=== PATIENT | male | born 1980 | race Caucasian/White ===

== ENCOUNTER 2016-09-04 15:56 | Inpatient (IN) | payer MEDICAID ==
[~2016-09-04] VITALS: Ht 170.2 cm; Wt 90.7 kg
[2016-09-04 16:44] LABS: BASOPHIL % 0.7 % (0-2); PLATELET COUNT 199 x10^3mcL (130-400)
[2016-09-04 16:45] LABS: RED CELL DISTRIBUTION WIDTH 14.9 % (11.5-14.5)
[2016-09-04 16:57] LABS: CALCIUM 8.4 mg/dL (8.5-10.1); CHLORIDE SERUM 103 mmol/L (98-107); CREATININE SERUM 1.3 mg/dL (0.7-1.3); GFR1 > 60 mL/min; GLUCOSE SERUM 132 mg/dL (74-106); POTASSIUM SERUM 3.5 mmol/L (3.5-5.1); SODIUM SERUM 140 mmol/L (136-145)
[2016-09-04 17:01] LABS: ALKALINE PHOSPHATASE 78 U/L (46-116); ALT/SGPT 48 U/L (16-63); AST/SGOT 40 U/L (15-37); BILIRUBIN TOTAL 0.7 mg/dL (0.20-1.00); TOTAL PROTEIN, SERUM 7.6 g/dL (6.4-8.2)
[2016-09-04 17:02] LABS: AMYLASE 392 U/L (25-115)
[2016-09-04 17:19] LABS: LIPASE 6921 IU/L (73-393)
[2016-09-04 17:29] LABS: UA SPECIFIC GRAVITY >=1.030 (1.005-1.035); microscopic required? YES; urine erythrocyte NEGATIVE (NEGATIVE)
[2016-09-04 17:45] LABS: AMPHETAMINE QUAL UR POSITIVE (NEG <=1000)
[2016-09-04 18:31] VITALS: BP 144/90
[2016-09-04 18:34] VITALS: Ht 170.2 cm; Wt 90.7 kg
[2016-09-04 19:12] LABS: T3 TOTAL 0.93 ng/mL
[2016-09-04 19:16] LABS: FREE THYROXINE INDEX 2.3 ug/dL (1.4-4.5); T4(THYROXINE) 6.4 ug/dL (4.7-13.3)
[2016-09-04 19:19] LABS: CHOLESTEROL/HDL RATIO 3.9; MAGNESIUM 1.9 mg/dL (1.8-2.4); PHOSPHOROUS 2.2 mg/dL (2.5-4.9)
[2016-09-04 22:03] VITALS: BP 145/56; BP 177/92
[2016-09-05 06:01] LABS: BASOPHIL % 0.2 % (0-2); PLATELET COUNT 197 x10^3mcL (130-400)
[2016-09-05 06:11] LABS: CALCIUM 7.5 mg/dL (8.5-10.1); CARBON DIOXIDE 21.6 mmol/L (21-32); CHLORIDE SERUM 103 mmol/L (98-107); GFR1 > 60 mL/min; GLUCOSE SERUM 137 mg/dL (74-106); MAGNESIUM 1.7 mg/dL (1.8-2.4); PHOSPHOROUS 2.5 mg/dL (2.5-4.9); POTASSIUM SERUM 3.3 mmol/L (3.5-5.1); SODIUM SERUM 137 mmol/L (136-145)
[2016-09-05 06:15] VITALS: BP 162/91
[2016-09-05 07:40] LABS: RED CELL DISTRIBUTION WIDTH 15.2 % (11.5-14.5)
[2016-09-05 09:18] VITALS: BP 130/66
[2016-09-05 12:54] VITALS: BP 133/74
[2016-09-05 17:00] VITALS: BP 132/75
[2016-09-05 20:42] VITALS: BP 120/81
[2016-09-06 05:48] VITALS: BP 135/80
[2016-09-06 09:31] VITALS: BP 132/72
[2016-09-06 09:53] LABS: AMYLASE 266 U/L (25-115); LIPASE 1908 IU/L (73-393)
[2016-09-06 10:47] LABS: PLATELET COUNT 162 x10^3mcL (130-400)
[2016-09-06 10:54] LABS: RED CELL DISTRIBUTION WIDTH 14.9 % (11.5-14.5)
[2016-09-06 11:05] LABS: CALCIUM 7.6 mg/dL (8.5-10.1); CARBON DIOXIDE 21.2 mmol/L (21-32); CHLORIDE SERUM 103 mmol/L (98-107); CREATININE SERUM 1.1 mg/dL (0.7-1.3); GFR1 > 60 mL/min; GLUCOSE SERUM 143 mg/dL (74-106); MAGNESIUM 2.3 mg/dL (1.8-2.4); PHOSPHOROUS 1.2 mg/dL (2.5-4.9); POTASSIUM SERUM 3.6 mmol/L (3.5-5.1); SODIUM SERUM 134 mmol/L (136-145)
[2016-09-06 11:58] LABS: ATYPICAL LYMPH 5 %; BAND NEUTROPHIL 7 % (0-10); SEGMENTED NEUTROPHILS 82 % (37-75)
[2016-09-06 11:59] LABS: PLATELET MORPHOLOGY PLATELETS NORMAL; rbc morphology (normal/abnorm) NORMAL (NORMAL)
[2016-09-06 14:00] VITALS: BP 127/82
[2016-09-06 17:44] VITALS: BP 144/92
[2016-09-06 21:23] VITALS: BP 154/94
[2016-09-07 05:47] VITALS: BP 149/95
[2016-09-07 06:26] LABS: BASOPHIL % 0.2 % (0-2); PLATELET COUNT 161 x10^3mcL (130-400)
[2016-09-07 06:28] LABS: CALCIUM 8.1 mg/dL (8.5-10.1); CARBON DIOXIDE 25.1 mmol/L (21-32); CHLORIDE SERUM 101 mmol/L (98-107); CREATININE SERUM 0.9 mg/dL (0.7-1.3); GFR1 > 60 mL/min; GLUCOSE SERUM 95 mg/dL (74-106); MAGNESIUM 2.4 mg/dL (1.8-2.4); PHOSPHOROUS 1.2 mg/dL (2.5-4.9); POTASSIUM SERUM 3.2 mmol/L (3.5-5.1); RED CELL DISTRIBUTION WIDTH 14.7 % (11.5-14.5); SODIUM SERUM 135 mmol/L (136-145)
[2016-09-07 09:20] VITALS: BP 145/99
[2016-09-07 13:18] VITALS: BP 127/76
[2016-09-07 17:15] VITALS: BP 154/88
[2016-09-07 21:29] VITALS: BP 149/94
[2016-09-08 05:28] VITALS: BP 147/98
[2016-09-08 06:15] LABS: CALCIUM 8.2 mg/dL (8.5-10.1); CARBON DIOXIDE 22.4 mmol/L (21-32); CHLORIDE SERUM 104 mmol/L (98-107); CREATININE SERUM 0.8 mg/dL (0.7-1.3); GFR1 > 60 mL/min; GLUCOSE SERUM 110 mg/dL (74-106); MAGNESIUM 2.4 mg/dL (1.8-2.4); PHOSPHOROUS 1.9 mg/dL (2.5-4.9); POTASSIUM SERUM 3.2 mmol/L (3.5-5.1); SODIUM SERUM 139 mmol/L (136-145)
[2016-09-08 06:30] LABS: BASOPHIL % 0.2 % (0-2); PLATELET COUNT 204 x10^3mcL (130-400); RED CELL DISTRIBUTION WIDTH 14.4 % (11.5-14.5)
[2016-09-08 10:02] VITALS: BP 137/91
[2016-09-08 18:03] VITALS: BP 138/97
[2016-09-08 21:59] VITALS: BP 133/86
[2016-09-09 05:42] VITALS: BP 140/87
[2016-09-09 06:43] LABS: BASOPHIL % 0.5 % (0-2); PLATELET COUNT 231 x10^3mcL (130-400)
[2016-09-09 07:01] LABS: CALCIUM 8.4 mg/dL (8.5-10.1); CARBON DIOXIDE 25.6 mmol/L (21-32); CHLORIDE SERUM 105 mmol/L (98-107); CREATININE SERUM 0.9 mg/dL (0.7-1.3); GFR1 > 60 mL/min; GLUCOSE SERUM 98 mg/dL (74-106); MAGNESIUM 2.3 mg/dL (1.8-2.4); PHOSPHOROUS 2.9 mg/dL (2.5-4.9); POTASSIUM SERUM 3.2 mmol/L (3.5-5.1); SODIUM SERUM 141 mmol/L (136-145)
[2016-09-09 07:15] LABS: RED CELL DISTRIBUTION WIDTH 14.9 % (11.5-14.5)
[2016-09-09 08:51] VITALS: BP 135/81
[2016-09-09 13:37] VITALS: BP 137/93
[2016-09-09] MEDS ORDERED: LEVAQUIN750 MG PO (14:19)
[2016-09-09] MEDS ORDERED: APAP/HYDROCODON1 T13 PO (14:24)
[2016-09-09] MEDS ORDERED: LAC PO (14:24)
[2016-09-09] MEDS ORDERED: ZOFRAN8 MG PO (14:25)
[2016-09-09] MEDS ORDERED: GAS-X80 M2 PO (14:42)
[2016-09-09] MEDS ORDERED: COLACE100 MG PO (14:45)
[2016-09-09 15:06] VITALS: BP 137/93
== END 2016-09-09 15:30 | disposition home or self-care (01) | DRG 720 ==
LOC: ED 15:56 → MU 17:45 → DU 17:45 → MU 09-07 09:01
PROVIDERS: Emergency Medicine; Family Medicine; ADMIT Family Medicine
DX: A41.9 Sepsis, unspecified organism (principal); N17.0 Acute kidney failure with tubular necrosis; E43 Unspecified severe protein-calorie malnutrition; K85.90 Acute pancreatitis without necrosis or infection, unspecified; J18.9 Pneumonia, unspecified organism; E78.2 Mixed hyperlipidemia; R65.20 Severe sepsis without septic shock; E83.39 Other disorders of phosphorus metabolism; E83.42 Hypomagnesemia; E87.6 Hypokalemia; E87.1 Hypo-osmolality and hyponatremia; E66.9 Obesity, unspecified; Z68.31 Body mass index [BMI] 31.0-31.9, adult
CPT/HCPCS: 83880; 84439; 94150; G0480; J1170; J1885; J1956; J2270; J2405; J3010; J3475; J3480; J7030; Q0092; Q9967